=== PATIENT | female | born 1970 | race Caucasian/White ===

== ENCOUNTER 2024-10-17 00:20 | Emergency (ER) | payer OTHER, SELFPAY ==
[2024-10-17 00:34] VITALS: BP 131/76; PULSE 85; RESP 18; TEMP 36.7; O2SAT 99; BMI 37.3
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
[2024-10-17 01:33] VITALS: BP 131/76; PULSE 85; RESP 18; TEMP 36.7; O2SAT 99
== END 2024-10-17 01:28 | disposition home or self-care (01) ==
PROVIDERS: Emergency Provider Emergency Medicine
DX: S29.9XXA Unspecified injury of thorax, initial encounter (principal); M79.10 Myalgia, unspecified site; V43.52XA Car driver injured in collision with other type car in traffic accident, initial encounter; Y93.9 Activity, unspecified; Y92.410 Unspecified street and highway as the place of occurrence of the external cause; Y99.8 Other external cause status
CPT/HCPCS: 99283; 99284